=== PATIENT | female | born 1945 | race Two or more races ===

== ENCOUNTER 2024-01-23 12:19 | Emergency (ER) | payer OTHER ==
[~2024-01-23] VITALS: Ht 162.6 cm; Wt 117.0 kg
[2024-01-23] MEDS ORDERED: CARVEDILOL25 MG (12:28)
[2024-01-23] MEDS ORDERED: ATORVASTATIN CA10 MG (12:28)
[2024-01-23] MEDS ORDERED: PEPCID AC20 MG (12:28)
[2024-01-23] MEDS ORDERED: VASOTEC5 MG (12:28)
[2024-01-23] MEDS ORDERED: ELIQUIS5 M1 (12:28)
[2024-01-23] MEDS ORDERED: DAFLONEX-XL 11300 MG (12:28)
[2024-01-23] MEDS ORDERED: LASIX20 MG (12:28)
[2024-01-23] MEDS ORDERED: DOXYCYCLINE HYCLATE 100MG IV ONE (13:00)
[2024-01-23 13:29] LABS: HEMOGLOBIN 13.2 g/dL (12.0-15.00); MEAN CELL VOLUME 90.6 fL (80.00-100.00); MEAN CORPUSCULAR HEMOGLOBIN 29.1 pg (27.00-32.0); MEAN CORPUSCULAR HGB CONC 32.1 g/dl (32.0-36.0); PLATELET COUNT 201 K/uL (150-450); RED BLOOD COUNT 4.53 M/uL (4.00-6.00); RED CELL DISTRIBUTION WIDTH 14.4 % (11.5-14.5)
[2024-01-23 13:54] LABS: D DIMER 0.36 MG/L; PARTIAL THROMBOPLASTIN TIME 35.9 SECONDS (22.0-34.0)
[2024-01-23 13:56] LABS: INR 1.12; PROTHROMBIN TIME 12.1 SECONDS (9.0-11.5)
[2024-01-23 14:06] LABS: ALBUMIN 3.3 gm/dL (3.4-5.0); BILIRUBIN TOTAL 0.81 mg/dL (0.3-1.2); CALCIUM 8.6 mg/dL (8.5-10.1); CREATININE SERUM 0.85 mg/dL (0.55-1.02); GFR 64.35; GLOBULINA 4.2 G/DL (2.4-3.5); POTASSIUM 4.2 mEq/L (3.5-5.1); TOTAL PROTEIN 7.5 gm/dL (6.4-8.2)
[2024-01-23 14:08] LABS: C-REACTIVE PROTEIN 5.58 MG/DL (0.00-0.29)
== END 2024-01-23 18:24 | disposition home or self-care (01) ==
LOC: ER 12:20
PROVIDERS: Emergency Medicine
DX: R60.0 Localized edema (principal)
CPT/HCPCS: 36415; 93971; 96365; 99284; J3490